=== PATIENT | male | born 1980 | race Caucasian/White ===

== ENCOUNTER 2023-10-23 08:00 | Emergency (ER) | payer OTHER, SELFPAY ==
[2023-10-23 08:05] VITALS: BP 177/109; PULSE 78; RESP 18; TEMP 36.7; O2SAT 96; BMI 35.6
--- NOTE | 2023-10-23 08:14 | CT_ITS ---
The [address] [address] Patient Name: GUI MENA MRN: [id number] date: 1980 Sex: M Assigned Patient Location: ER Current Patient Location: .[facility] Accession/Order Number: [id number] Exam Date: 10/23/2023 08:46 Report Date: 10/23/2023 09:25 At the request of: SUE CASTILLO Procedure: CT abdomen pelvis wo con PROCEDURE: CT abdomen pelvis wo con DATE: 10/23/2023 7:46 AM COMMAND AND CONTROL SPECIALIST COMPARISONS: None. CLINICAL INDICATION: 43 years Male flank pain and kidney stone TECHNIQUE: Axial images were obtained. Coronal and sagittal reformations were created. Individualized dose optimization technique was used for the procedure performed. FINDINGS: The lower lung gregory are clear. There are no focal hepatic abnormalities. The liver has a normal appearance on these unenhanced images. The spleen, pancreas and adrenals are within normal limits. The gallbladder and biliary tree appear normal. There is no evidence of significant renal cysts. No renal masses are identified on these unenhanced images. There is no hydronephrosis. There is 1 to 2 mm nonobstructing calculus lower pole left kidney. There is no other nephrolithiasis. There is no evidence of ureterolithiasis either on the right or on the left. The urinary bladder shows no abnormalities on these unenhanced images. The aorta is normal in caliber. The inferior vena cava appears unremarkable. There is no evidence of abdominal or pelvic adenopathy. The visualized bowel loops show no abnormal dilatation or wall thickening. There is no evidence of colitis, enteritis or appendicitis. There is no evidence of significant free fluid, no evidence of abnormal fluid collections and no evidence of free intraperitoneal air. There is mild to moderate degenerative disc change at L4-L5. There is some posterior osteophytic spurring and disc bulging at this level. Depending on clinical scenario, further workup could be considered of this including consideration given to MRI of the lumbar spine. CT/CT abdomen pelvis wo con IMPRESSION: 1. There is a 1 to 2 mm nonobstructing calculus lower pole left kidney. 2. No ureterolithiasis, hydronephrosis or other urinary abnormalities 3. Mild to moderate degenerative disc change at L4-L5 Electronically authenticated by: SHELLY MCDERMOTT Date: 10/23/2023 09:25
[2023-10-23] MEDS: KETOROLAC TROMETHAMINE 30 MG/ML VIAL 15 MG IVP (08:33)
[2023-10-23 08:35] LABS: Basophils Absolute Auto 0.1 10^3/uL (0.0-0.1); Eosinophils Absolute Auto 0.2 10^3/uL (0.0-0.7); Eosinophils Percent Auto 2.2 % (0.9-7.0); Hematocrit 46.8 % (42.0-54.0); Hemoglobin 14.9 g/dL (14.0-18.0); Immature Granulocytes Abs Auto 0.02 10^3/uL (0.00-0.03); Immature Granulocytes Pct Auto 0.3 % (0.0-0.5); Lymphocytes Absolute Auto 2.5 10^3/uL (1.2-3.8); Mean Corpuscular HGB Conc 31.8 g/dL (29.9-35.2); Mean Corpuscular Hemoglobin 30.1 pg (25.9-34.0); Mean Corpuscular Volume 94.5 fL (80.0-94.0); Mean Platelet Volume 10.3 fL (9.5-13.5); Monocytes Absolute Auto 0.5 10^3/uL (0.3-0.8); Monocytes Percent Auto 6.7 % (1.7-12.0); Neutrophils Percent Auto 55.8 % (43.0-75.0); Platelet Count 322 10^3/uL (150-450); Red Blood Count 4.95 10^6/uL (4.70-6.10); Red Cell Distribution Width 11.5 % (11.0-15.0); White Blood Count 7.2 10^3/uL (4.0-11.0)
[2023-10-23 08:36] LABS: Bilirubin Urine NEGATIVE (NEGATIVE); Blood Urine NEGATIVE (NEGATIVE); Clarity Urine CLEAR (CLEAR); Color Urine LT. YELLOW (YELLOW); Glucose Urine UA NEGATIVE (NEGATIVE); Ketones Urine NEGATIVE (NEGATIVE); Leukocyte Esterase Urine NEGATIVE (NEGATIVE); Nitrite Urine NEGATIVE (NEGATIVE); Protein Urine NEGATIVE (NEG/TRACE); Urobilinogen Urine 0.2 EU/dL (0.2-1.0)
[2023-10-23 08:44] LABS: Urine Microscopic Indicated NO
[2023-10-23 08:48] LABS: Alanine Aminotransferase 42 U/L (16-63); Albumin Globulin Ratio 1.1; Albumin Level 4.1 g/dL (3.4-5.0); Alkaline Phosphatase 79 U/L (46-116); Anion Gap 13.2; Aspartate Amino Transferase 17 U/L (15-37); BUN Creatinine Ratio 22.2; Bilirubin Total 0.8 mg/dL (0.2-1.0); Carbon Dioxide 28.8 mmol/L (21.0-32.0); Chloride 102 mmol/L (98-107); Estimated GFR (African America >60 (>=60); Estimated GFR (Non-African Ame >60 (>=60); Globulin 3.9 g/dL; Glucose 112 mg/dL (74-106); Sodium 140 mmol/L (136-145)
--- NOTE | 2023-10-23 08:52 | ED_ITS ---
HPI - General Adult General Chief complaint: Abdominal Pain Stated complaint: FLANK PAIN TESTICLE PAIN Time Seen by Provider: 10/23/23 08:13 Source: patient Mode of arrival: walk-in Limitations: no limitations History of Present Illness HPI narrative: The patient have history of kidney stone presenting to us with 1 week history of right-sided flank pain radiating into his right testicles, patient mentioned that he had a history of kidney stone before and this pain this time is continuous and it not episodic, not associated with nausea and vomiting or any fever or chills, the patient does not endorse any frequency and urgency symptoms. He also mentioned that the pain increased with movement with a he is having 6 out of 10 pain over time in the right flank radiating to his right testicles. No history of fall or trauma. Related Data Previous Rx's Medication Instructions Recorded ibuprofen 600 mg tablet 600 mg PO TID #10 tabs 10/23/23 orphenadrine citrate 100 mg 100 mg PO DAILY PRN muscle spasm 10/23/23 tablet,extended release 10 days #10 tabs Allergies Allergy/AdvReac Type Severity Reaction Status Date / Time No Known Drug Allergies Allergy Verified 10/23/23 08:07 Review of Systems ROS Status of ROS 10 or more systems reviewed and unremark able except as noted in history and below [facility] Social History Smoking status: Never smoker Exam Narrative Exam Narrative: Nurses notes and vital signs reviewed and patient is not hypoxic. General: Well-appearing and in no apparent distress. Skin: Warm, dry, no pallor noted. No rash. Head: Normocephalic, atraumatic. Neck: Supple, non-tender. Eye: Pupils are equal, round and EOMI. No scleral icterus. Ears, Nose, Mouth, and Throat: TM are clear, no nasal mucosal hypertrophy. Oral mucosa is moist, no posterior oropharynx erythema, uvula is mid-line Cardiovascular: Regular Rate and Rhythm without murmur, gallop or rub. Respiratory: No accessory muscle use or respiratory distress. Lungs are clear to auscultation, no wheezing, rales or rhonchi Chest Wall: no tenderness Back: No midline thoracic or lumbar vertebral tenderness. The patient have tenderness upon palpation of the right costophrenic angle, but the tenderness is induced with palpation on superficial touch, Musculoskeletal: normal ROM, no calf or popliteal tenderness, no lower extremity edema/swelling GI: Abdomen is soft, non-distended. Normal bowel sounds. No masses appreciated. No tenderness to palpation. No rebound, guarding, or rigidity noted. Scrotal exam showed that the patient have no tenderness on palpation no skin changes and no signs of infection Neurological: A&O x4. No cranial nerve dysfunction observed. No truncal ataxia. Moves all extremities. Sensation intact. Psychiatric: Cooperative and interactive. Normal mood and affect. Constitutional Vital Signs, click to edit/add: Last Vital Signs Temp 98.1 F 10/23/23 08:05 Pulse 78 10/23/23 08:05 Resp 18 10/23/23 08:05 BP 177/109 H 10/23/23 08:05 Pulse Ox 96 10/23/23 08:05 O2 Del Method Room Air 10/23/23 08:05 Course Vital Signs Vital signs: Vital Signs Temperature 98.1 F 10/23/23 08:05 Pulse Rate 78 10/23/23 08:05 Respiratory Rate 18 10/23/23 08:05 Blood Pressure 177/109 H 10/23/23 08:05 Pulse Oximetry 96 10/23/23 08:05 Oxygen Delivery Method Room Air 10/23/23 08:05 Temperature 98.1 F 10/23/23 08:05 Pulse Rate 78 10/23/23 08:05 Respiratory Rate 18 10/23/23 08:05 Blood Pressure 177/109 H 10/23/23 08:05 Pulse Oximetry 96 10/23/23 08:05 Oxygen Delivery Method Room Air 10/23/23 08:05 Medical Decision Making [facility] Narrative Medical decision making narrative: CBC and chemistry showed no acute significant pathology And the urine showed no infection The patient CAT scan showed no significant pathology detected on the right side and on examination of his testicle there was no tenderness on examination or any concern for torsion. Right now the patient was instructed that he will be treated for possible possible back sprain with ibuprofen course of anti-inflammatory for 3 days and Norflex The patient is to follow up with primary care physician in next 2-3 days or to return to the emergency department should any of the signs or symptoms worsen or new symptoms develop. The patient agrees with the following Diagnosis and Treatment plan and the patient will be discharged home. Lab Data Labs: Lab Results 10/23/23 10/23/23 Range/Units 08:22 08:30 WBC 7.2 (4.0-11.0) 10^3/uL RBC 4.95 (4.70-6.10) 10^6/uL Hgb 14.9 (14.0-18.0) g/dL Hct 46.8 (42.0-54.0) % MCV 94.5 H (80.0-94.0) fL MCH 30.1 (25.9-34.0) pg MCHC 31.8 (29.9-35.2) g/dL RDW 11.5 (11.0-15.0) % Plt Count 322 (150-450) 10^3/uL MPV 10.3 (9.5-13.5) fL Neut % (Auto) 55.8 (43.0-75.0) % Lymph % (Auto) 34.0 (20.5-60.0) % [place] % (Auto) 6.7 (1.7-12.0) % Eos % (Auto) 2.2 (0.9-7.0) % Baso % (Auto) 1.0 (0.2-2.0) % Neut # (Auto) 4.0 (1.4-6.5) 10^3/uL Lymph # (Auto) 2.5 (1.2-3.8) 10^3/uL [place] # (Auto) 0.5 (0.3-0.8) 10^3/uL Eos # (Auto) 0.2 (0.0-0.7) 10^3/uL Baso # (Auto) 0.1 (0.0-0.1) 10^3/uL Abs Immat Gran (auto) 0.02 (0.00-0.03) 10^3/uL Imm/Tot Granulo (auto) 0.3 (0.0-0.5) % Sodium 140 (136-145) mmol/L Potassium 4.0 (3.5-5.1) mmol/L Chloride 102 (98-107) mmol/L Carbon Dioxide 28.8 (21.0-32.0) mmol/L Anion Gap 13.2 BUN 16.0 (7.0-18.0) mg/dL Creatinine 0.72 (0.70-1.30) mg/dL Est GFR ( Amer) >60 (>=60) Est GFR (Non-Af Amer) >60 (>=60) BUN/Creatinine Ratio 22.2 Glucose 112 H (74-106) mg/dL Calcium 9.0 (8.5-10.1) mg/dL Total Bilirubin 0.8 (0.2-1.0) mg/dL AST 17 (15-37) U/L ALT 42 (16-63) U/L Alkaline Phosphatase 79 (46-116) U/L Total Protein 8.0 (6.4-8.2) g/dL Albumin 4.1 (3.4-5.0) g/dL Globulin 3.9 g/dL Albumin/Globulin Ratio 1.1 Urine Color Lt. yellow (YELLOW) Urine Clarity Clear (CLEAR) Urine pH 8.0 (5.0-9.0) Ur Specific [place] 1.020 (1.005-1.025) Urine Protein Negative (NEG/TRACE) mg/dL Urine Glucose (UA) Negative (NEGATIVE) mg/dL Urine Ketones Negative (NEGATIVE) mg/dL Urine Occult Blood Negative (NEGATIVE) Urine Nitrite Negative (NEGATIVE) Urine Bilirubin Negative (NEGATIVE) Urine Urobilinogen 0.2 (0.2-1.0) EU/dL Ur Leukocyte Esterase Negative (NEGATIVE) Discharge Plan Discharge Chief Complaint: Abdominal Pain Clinical Impression: Calculus of kidney, Back sprain Patient Disposition: Home, Self-Care Time of Disposition Decision: 09:42 Condition: Good Prescriptions / Home Meds: New ibuprofen 600 mg tablet 600 mg PO TID Qty: 10 0RF Rx Instructions: please take meds with food orphenadrine citrate 100 mg tablet extended release 100 mg PO DAILY PRN (Reason: muscle spasm) 10 Days Qty: 10 0RF Instructions: Back Pain (ED) Stand Alone Forms: Portal Instructions Referrals: Physician,Non-Staff, MD [Primary Care Provider] - 1 week
[2023-10-23 09:55] VITALS: BP 169/82
== END 2023-10-23 09:55 | disposition home or self-care (01) ==
PROVIDERS: Emergency Provider Emergency Medicine
DX: N20.0 Calculus of kidney (principal); S33.5XXA Sprain of ligaments of lumbar spine, initial encounter; Z87.442 Personal history of urinary calculi
CPT/HCPCS: 36415; 74176; 80053; 81003; 85025; 96374; 99284; J1885

== ENCOUNTER 2024-01-01 07:59 | Emergency (ER) | payer OTHER, SELFPAY ==
[2024-01-01] VITALS (19 sets, daily range): BP systolic 141–160; BP diastolic 82–99; PULSE 76–82; O2SAT 94–98; BMI 35.6
--- NOTE | 2024-01-01 08:20 | XR_ITS ---
[address] [address] Patient Name: GUI MENA MRN: [id number] date: 1980 Sex: M Assigned Patient Location: ER Current Patient Location: ER Accession/Order Number: [id number] Exam Date: 01/01/2024 08:30 Report Date: 01/01/2024 09:00 At the request of: BRADY ARCINIEGA Procedure: XR chest 1V EXAM: XR chest 1V HISTORY: SOB COMPARISON: None FINDINGS/IMPRESSION: 1. Mild platelike atelectasis at the left lung base. 2. No pneumothorax. No pleural effusion. 3. Heart size and mediastinal contours are normal 4. No acute osseous abnormality Electronically authenticated by: TIMOTHY SHARPE Date: 01/01/2024 09:00
--- NOTE | 2024-01-01 08:21 | ED_ITS ---
HPI - URI/Sore Throat General Chief Complaint: Upper Respiratory Infection Stated Complaint: SOB Time Seen by Provider: 01/01/24 08:17 Source: patient Limitations: no limitations History of Present Illness HPI Narrative: 43-year-old male present for shortness of breath. He has a history of asthma and has been having some trouble breathing for the past few days. His inhaler does not seem to help much anymore. He feels like he has phlegm but he cannot cough it up. No hemoptysis or known fever. He has been wheezing. Related Data Previous Rx's ?Medication ?Instructions ?Recorded ibuprofen 600 mg tablet 600 mg PO TID #10 tabs 10/23/23 orphenadrine citrate 100 mg 100 mg PO DAILY PRN muscle spasm 10/23/23 tablet,extended release 10 days #10 tabs azithromycin 250 mg tablet See Rx Instructions PO .COMPLEX #6 01/01/24 (Zithromax Z-Oscar) tabs prednisone 10 mg tablet See Rx Instructions .Route 01/01/24 .COMPLEX #30 tabs Allergies Allergy/AdvReac Type Severity Reaction Status Date / Time No Known Drug Allergies Allergy Verified 10/23/23 08:07 Review of Systems ROS Narrative A ten point review of systems is negative except as noted above. PFSH PFSH Social History Smoking status: Never smoker Exam Narrative Exam Narrative: Nurses note and vital signs reviewed and patient is not hypoxic. General: The patient appears well and in no apparent distress. Patient is resting comfortably on cart. Skin: Warm, dry, no pallor noted. There is no rash noted. Head: Normocephalic, atraumatic Eye: Normal conjunctiva, no drainage Ears, Nose, Mouth, and Throat: oral mucosa is moist. Nares patent. Cardiovascular: Regular Rate and Rhythm Respiratory: A few rhonchi present Back: non-tender GI: Soft and non- Musculoskeletal: The patient has no evidence of calf tenderness, no pitting arabella a, symmetrical pulses noted bilaterally Neurological: A&O, normal speech Psychiatric: Cooperative Constitutional Vital Signs, click to edit/add: Last Vital Signs Pulse 82 01/01/24 10:13 Resp 20 01/01/24 10:13 BP 151/90 H 01/01/24 10:13 Pulse Ox 97 01/01/24 10:13 O2 Del Method Room Air 01/01/24 10:13 Course Vital Signs Vital signs: Vital Signs Blood Pressure 160/99 H 01/01/24 08:04 Pulse Oximetry 97 01/01/24 08:04 Pulse Rate 82 01/01/24 10:13 Respiratory Rate 20 01/01/24 10:13 Blood Pressure 151/90 H 01/01/24 10:13 Pulse Oximetry 97 01/01/24 10:13 Oxygen Delivery Method Room Air 01/01/24 10:13 MDM - URI/Sore Throat MDM Narrative Medical decision making narrative: COVID, influenza, and chest x-ray are negative. He feels better after being given IV Solu-Medrol and aerosol treatment and he is able to be discharged home. Treatment diagnosis and follow-up were discussed with the patient. Differential Diagnosis Differential diagnosis: Likely upper respiratory infection, bronchitis, influenza and other (COVID, pneumonia) Lab Data Attestation: I reviewed the patient's lab results. Labs: Lab Results 01/01/24 01/01/24 Range/Units 08:08 08:29 WBC 14.1 H (4.0-11.0) 10^3/uL RBC 4.63 L (4.70-6.10) 10^6/uL Hgb 14.3 (14.0-18.0) g/dL Hct 43.4 (42.0-54.0) % MCV 93.7 (80.0-94.0) fL MCH 30.9 (25.9-34.0) pg MCHC 32.9 (29.9-35.2) g/dL RDW 11.8 (11.0-15.0) % Plt Count 307 (150-450) 10^3/uL MPV 10.2 (9.5-13.5) fL Neut % (Auto) 76.3 H (43.0-75.0) % Lymph % (Auto) 14.1 L (20.5-60.0) % [place] % (Auto) 6.8 (1.7-12.0) % Eos % (Auto) 2.0 (0.9-7.0) % Baso % (Auto) 0.4 (0.2-2.0) % Neut # (Auto) 10.8 H (1.4-6.5) 10^3/uL Lymph # (Auto) 2.0 (1.2-3.8) 10^3/uL [place] # (Auto) 1.0 H (0.3-0.8) 10^3/uL Eos # (Auto) 0.3 (0.0-0.7) 10^3/uL Baso # (Auto) 0.1 (0.0-0.1) 10^3/uL Abs Immat Gran (auto) 0.05 H (0.00-0.03) 10^3/uL Imm/Tot Granulo (auto) 0.4 (0.0-0.5) % Sodium 140 (136-145) mmol/L Potassium 4.5 (3.5-5.1) mmol/L Chloride 103 (98-107) mmol/L Carbon Dioxide 28.7 (21.0-32.0) mmol/L Anion Gap 12.8 BUN 12.0 (7.0-18.0) mg/dL Creatinine 0.73 (0.70-1.30) mg/dL Est GFR ( Amer) >60 (>=60) Est GFR (Non-Af Amer) >60 (>=60) BUN/Creatinine Ratio 16.4 Glucose 112 H (74-106) mg/dL Calcium 9.4 (8.5-10.1) mg/dL Influenza Type A Ag Negative Influenza Type B Ag Negative SARS-CoV-2 Ag (CV2AG) Negative (NEGATIVE) Discharge Plan Discharge Stand Alone Forms: Portal Instructions Chief Complaint: Upper Respiratory Infection Clinical Impression: Acute bronchitis Patient Disposition: Home, Self-Care Time of Disposition Decision: 10:17 Condition: Good Mode of Transportation: Private Vehicle Prescriptions / Home Meds: New prednisone 10 mg tablet See Rx Instructions .ROUTE .COMPLEX Qty: 30 0RF Rx Instructions: 4 by mouth daily for three days then 3 by mouth daily for three days then 2 by mouth daily for three days then 1 by mouth daily for three days azithromycin [Zithromax Z-Oscar] 250 mg tablet See Rx Instructions .ROUTE .COMPLEX Qty: 6 0RF Rx Instructions: For 250 mg dose pack: take 500 mg today (day 1), then 250 mg for 4 days (days 2-5) No Action ibuprofen 600 mg tablet 600 mg PO TID Qty: 10 0RF Rx Instructions: please take meds with food orphenadrine citrate 100 mg tablet extended release 100 mg PO DAILY PRN (Reason: muscle spasm) 10 Days Qty: 10 0RF Print Language: Uzbek Instructions: Acute Bronchitis (ED) Referrals: Physician,Non-Staff, MD [Primary Care Provider] - 1 week
[2024-01-01] MEDS: ALBUTEROL SULFATE 2.5 MG/3 ML VIAL NEB IH (08:28)
[2024-01-01 08:39] LABS: Basophils Absolute Auto 0.1 10^3/uL (0.0-0.1); Basophils Percent Auto 0.4 % (0.2-2.0); Eosinophils Absolute Auto 0.3 10^3/uL (0.0-0.7); Hematocrit 43.4 % (42.0-54.0); Hemoglobin 14.3 g/dL (14.0-18.0); Immature Granulocytes Abs Auto 0.05 10^3/uL (0.00-0.03); Immature Granulocytes Pct Auto 0.4 % (0.0-0.5); Lymphocytes Percent Auto 14.1 % (20.5-60.0); Mean Corpuscular HGB Conc 32.9 g/dL (29.9-35.2); Mean Corpuscular Hemoglobin 30.9 pg (25.9-34.0); Mean Corpuscular Volume 93.7 fL (80.0-94.0); Mean Platelet Volume 10.2 fL (9.5-13.5); Monocytes Percent Auto 6.8 % (1.7-12.0); Neutrophils Absolute Auto 10.8 10^3/uL (1.4-6.5); Neutrophils Percent Auto 76.3 % (43.0-75.0); Platelet Count 307 10^3/uL (150-450); Red Blood Count 4.63 10^6/uL (4.70-6.10); Red Cell Distribution Width 11.8 % (11.0-15.0); White Blood Count 14.1 10^3/uL (4.0-11.0)
[2024-01-01 08:39] LABS: Influenza Virus A Antigen Negative; Influenza Virus B Antigen Negative; Internal Control Within Normal Limits; SARS-CoV-2 Ag NEGATIVE (NEGATIVE)
[2024-01-01] MEDS: METHYLPREDNISOLONE SOD SUCC PF 125 MG/2 ML VIAL IVP (08:40)
[2024-01-01 08:45] LABS: Anion Gap 12.8; BUN Creatinine Ratio 16.4; Calcium 9.4 mg/dL (8.5-10.1); Carbon Dioxide 28.7 mmol/L (21.0-32.0); Chloride 103 mmol/L (98-107); Estimated GFR (African America >60 (>=60); Estimated GFR (Non-African Ame >60 (>=60); Glucose 112 mg/dL (74-106); Potassium 4.5 mmol/L (3.5-5.1); Sodium 140 mmol/L (136-145)
== END 2024-01-01 10:22 | disposition home or self-care (01) ==
PROVIDERS: Emergency Provider Emergency Medicine
DX: J20.9 Acute bronchitis, unspecified (principal); J45.909 Unspecified asthma, uncomplicated; Z20.822 Contact with and (suspected) exposure to COVID-19
CPT/HCPCS: 36415; 71045; 80048; 85025; 87804; 87811; 94640; 96374; 99284; J2919